=== PATIENT | male | born 1940 | race Caucasian/White ===

== ENCOUNTER → 2019-01-24 | Outpatient (CLI) | payer MEDICARE, MEDICAID ==
[~2019-01-24] MED LIST: ACET325T38 PO; ACET325T49 PO; ASCO-262 PO; ASPI-983 PO; BACL10TA PO; CEFD300C3 PO; CEPH-507 PO; DILT120C94 PO; DILT120T3 PO; DIVA-76 PO; DONE5TAB30 PO; DONE5TAB8 PO; FLUO10TA PO; HALO2TAB PO; HONE15GE TP; KETO-22 PO; LISI10TA2 PO; LORA0.5T PO; MAGN400O7 PO; MEMA5TAB PO; MEMA7CAP PO; MOME15CR17 TP; NITR0.4T SL; PRD10T PO; RISP0.2517 PO; RISP0.253 PO; RISP0.5T21 PO; ROPI0.253 PO; TRAM50TA2 PO; TRAZ-222 PO; TRIH2TAB2 PO
--- NOTE | 2019-01-24 14:09 | Diagnostic Imaging Report ---
Indication: Left great toe warm and redness. Grayscale, color-flow and duplex Doppler evaluation of the left lower extremity arterial system was performed. Triphasic waveforms left common femoral artery are noted. Predominantly biphasic waveforms in the left superficial femoral and popliteal artery is seen. Peroneal artery was not visualized. There are monophasic waveforms in the anterior and posterior tibial arteries as well as the dorsalis pedis. The velocities are unremarkable. There is some generalized plaque throughout the left lower extremity arterial system. Impression: Monophasic waveforms below the knee consistent with small vessel disease. No high-grade stenosis or occlusion is detected apart from nonvisualized peroneal artery. Dictated by: Dictated on workstation # [id number]
== END ==
LOC: RAD 12:17
PROVIDERS: ATTEND Family Medicine
DX: E11.9 Type 2 diabetes mellitus without complications (principal); R23.8 Other skin changes
CPT/HCPCS: 93926

== ENCOUNTER 2020-03-31 16:05 | Emergency (ER) | payer MEDICARE, MEDICAID ==
[~2020-03-31] VITALS: Ht 182 cm; Wt 90.7 kg
[~2020-03-31 16:05] MED LIST changes: +ASPI-1238 PO; -ASPI-983 PO; +DILT120C88 PO; -DILT120C94 PO; -MOME15CR17 TP; +MOME15CR8 TP; -TRAM50TA2 PO; -TRAZ-222 PO; +TRM50T PO; +TRZ50T PO
[2020-03-31] MEDS ORDERED: LACTATED RINGERS 1,000 ML IV ONE (16:08)
[2020-03-31] MEDS ORDERED: NS IV 1000 ML 1,000 ML ONE (16:23)
[2020-03-31 16:24] LABS: BASOPHILS % (AUTO) 0 % (0-10); EOSINOPHILS % (AUTO) 0 % (0-10); HEMATOCRIT 44 % (40-54); HEMOGLOBIN 14.2 g/dL (13.3-17.7); LYMPHOCYTES # (AUTO) 1.4 10^3/uL (1.0-4.0); LYMPHOCYTES % (AUTO) 9 % (12-44); MEAN CORPUSCULAR HEMOGLOBIN 30 pg (25-34); MEAN CORPUSCULAR HGB CONC 32 g/dL (32-36); MEAN CORPUSCULAR VOLUME 94 fL (80-99); MEAN PLATELET VOLUME 11.1 fL (9.0-12.2); MONOCYTES # (AUTO) 1.9 10^3/uL (0.0-1.0); MONOCYTES % (AUTO) 12 % (0-12); NEUTROPHILS # (AUTO) 12.1 10^3/uL (1.8-7.8); NEUTROPHILS % (AUTO) 78 % (42-75); PLATELET COUNT 270 10^3/uL (130-400); WHITE BLOOD COUNT 15.5 10^3/uL (4.3-11.0)
[2020-03-31] MEDS ORDERED: ONDANSETRON 4 MG/2 ML (SDV) Z0FRAN IVP ONE (16:30)
[2020-03-31 16:32] LABS: BILIRUBIN,URINE NEGATIVE (NEGATIVE); CLARITY,URINE SL CLOUDY; COLOR,URINE YELLOW; GLUCOSE, URINE (UA) NEGATIVE (NEGATIVE); KETONES,URINE 1+ (NEGATIVE); LEUKOCYTE ESTERASE ,URINE NEGATIVE (NEGATIVE); NITRITE,URINE NEGATIVE (NEGATIVE); PH,URINE 5.5 (5-9); PROTEIN,URINE 3+ (NEGATIVE)
[2020-03-31 16:33] LABS: ALBUMIN 4.1 GM/DL (3.2-4.5); POTASSIUM 3.4 MMOL/L (3.6-5.0)
[2020-03-31 16:34] LABS: CALCIUM 9.5 MG/DL (8.5-10.1)
[2020-03-31 16:35] LABS: TOTAL PROTEIN 8.3 GM/DL (6.4-8.2)
[2020-03-31 16:37] LABS: BILIRUBIN,TOTAL 0.5 MG/DL (0.1-1.0); FIBRIN DEGRADATION PRODUCTS 5.24 UG/ML (0.00-0.49); INR 1.1 (0.8-1.4)
[2020-03-31 16:39] LABS: CREATININE SERUM 1.7 MG/DL (0.60-1.30); MAGNESIUM 2.6 MG/DL (1.6-2.4); NEUTROPHILS % (MANUAL) 73 %
[2020-03-31 16:40] LABS: BAND NEUTROPHILS 7 %; BASOPHILS % (MANUAL) 0 %; EOSINOPHILS % (MANUAL) 0 %; LYMPHOCYTES % (MANUAL) 10 %; MONOCYTES % (MANUAL) 10 %; RBC MORPH NORMAL
[2020-03-31 16:44] LABS: AMORPHOUS SEDIMENT,UR FEW AMOR URATES /LPF; BACTERIA,URINE NEGATIVE /HPF; WBC,URINE 0-2 /HPF
--- NOTE | 2020-03-31 17:11 | Diagnostic Imaging Report ---
EXAMINATION: Portable chest. COMPARISON: Prior study from April 18, 2018. INDICATION: Sepsis. FINDINGS: Prominent right-sided cardiac border is unchanged from the previous examination. There appears to be enlargement of the cardiac silhouette and pulmonary vascularity appears appropriate. There is no finding of dense alveolar consolidation or evidence to suggest a large effusion. There is no pneumothorax. Overall lung volumes are slightly diminished compared to the prior examination. IMPRESSION: Diminished lung volumes without plain film findings of focal infiltrate or consolidation. There is no significant effusion. Heart size and mediastinal contours are unchanged from prior study. Dictated by: Dictated on workstation # [id number]
--- NOTE | 2020-03-31 18:01 | Diagnostic Imaging Report ---
PROCEDURE: CT head and CT cervical spine without contrast. TECHNIQUE: Multiple contiguous axial images were obtained through the brain and cervical spine without the use of intravenous contrast. Sagittal and coronal reformations through the cervical spine were then performed. Auto Exposure Controls were utilized during the CT exam to meet ALARA standards for radiation dose reduction. INDICATION: Trauma. Altered mental status. COMPARISON: CT head without contrast 06/17/2017. FINDINGS: CT head: No intracranial hemorrhage, mass effect, hydrocephalus or extra-axial fluid collection. Intracranial vascular calcifications. No CT evidence of an acute territorial infarction. 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 There is also chronic infarct in the left cerebellum. Advanced generalized cerebral and cerebellar parenchymal volume loss. Osseous structures are intact. Mild mucosal thickening in the right maxillary sinus. The mastoids are clear. CT cervical spine: Grade 1 anterolisthesis of C4 on C5. Vertebral body heights are preserved. No fracture. Advanced diffuse degenerative endplate changes and facet arthropathy. No high-grade spinal canal stenosis is evident on soft tissue windows. Advanced atherosclerotic calcifications. Lung apices are clear. IMPRESSION: No acute intracranial or cervical spine CT finding. Chronic and incidental findings as above. Dictated by: Dictated on workstation # [id number]
--- NOTE | 2020-03-31 18:05 | Diagnostic Imaging Report ---
PROCEDURE: CT abdomen and pelvis without contrast. TECHNIQUE: Multiple contiguous axial images were obtained through the abdomen and pelvis without the use of intravenous contrast. Auto Exposure Controls were utilized during the CT exam to meet ALARA standards for radiation dose reduction. INDICATION: Altered mental status. Vomiting. Sepsis. COMPARISON: None. FINDINGS: Examination is limited by motion. Mild atelectasis in the right lung base. The gallbladder is not identified and may be surgically absent. Cardiomegaly. Ospina catheter within a decompressed urinary bladder. The liver, pancreas, spleen, adrenals, kidneys and collecting systems are negative on this noncontrast exam. The appendix is not seen and may be surgically absent. Several fluid-filled loops of small bowel and proximal colon are prominent in caliber without tom dilatation or a focal transition point. No lymphadenopathy. No free intraperitoneal air or fluid. No acute osseous finding. Grade 1 anterolisthesis of L3 on L4 with chronic bilateral L3 pars defects. Advanced spondylotic changes at L3-L5. IMPRESSION: 1. Several loops of distended fluid-filled small bowel and proximal colon without a focal transition point to suggest obstruction. Findings could be due to an enteritis versus ileus. 2. Additional chronic findings as above. Dictated by: Dictated on workstation # [id number]
--- NOTE | 2020-03-31 18:16 | ED General ---
General Chief Complaint: Altered Mental Status Stated Complaint: VOMITING/DIARRHEA/HYPOTENSION Nursing Triage Note: Pt brought to ER via [facility] from [facility]. Per EMS patient was found on the floor covered in vomit and diarrhea. Pt brougt in with hypotension. He responds to his name called but does not follow commands or answer questions. Pt's right pupil is larger than left and he appears to have a left facial droop. Nursing Sepsis Screen: No Definite Risk Source of Information: EMS, Family, Long-Term Records Exam Limitations: No Limitations History of Present Illness Date Seen by Provider: Mar 31, 2020 Time Seen by Provider: 16:06 Initial Comments This 79 year old gentleman is a resident of [facility] and presents via EMS with weakness, vomiting, diarrhea, altered mental status, and hypotension. He was found on the floor at his facility with emesis and bowel movement around him. He is afebrile and feels cool to the touch. He has Parkinson's and dementia and general functional decline. He no longer walks independently. He does take care of some of his own ADLs including feeding himself. There was no obvious injury. Allergies and Home Medications Allergies Coded Allergies: No Known Drug Allergies (Unverified , 11/05/11) Home Medications Acetaminophen 325 Mg Tablet, 325 MG PO HS, (Reported) Acetaminophen 325 Mg Tablet, 650 MG PO Q4H PRN for MILD PAIN/ELEVATED TEMP, (Reported) TAKES 2 (325MG) TABLETS Ascorbate Calcium 500 Mg Tablet, 500 MG PO DAILY, (Reported) Aspirin 81 Mg Tablet.dr, 81 MG PO DAILY, (Reported) Baclofen 10 Mg Tablet, 10 MG PO BID, (Reported) Diltiazem HCl 120 Mg Cap.er.24h, 120 MG PO DAILY, (Reported) Divalproex Sodium 500 Mg Tablet.dr, 500 MG PO TID, (Reported) 0900, 1300, 1700 Donepezil HCl 5 Mg Tablet, 5 MG PO DAILY, (Reported) Fluoxetine HCl 10 Mg Tablet, 10 MG PO DAILY, (Reported) Lisinopril 10 Mg Tablet, 10 MG PO DAILY, (Reported) Magnesium Hydroxide 400 Mg/5 Ml Oral.susp, 30 ML PO DAILY PRN for CONSTIPATION- 7TH LINE, (Reported) Memantine HCl 5 Mg Tablet, 5 MG PO DAILY, (Reported) Nitroglycerin 0.4 Mg Tab.subl, 0.4 MG SL UD PRN for CHEST PAIN, (Reported) Ropinirole HCl 0.25 Mg Tablet, 0.25 MG PO HS, (Reported) Tramadol HCl 50 Mg Tablet, 50 MG PO BID, (Reported) Trihexyphenidyl HCl 2 Mg Tablet, 1 MG PO TID, (Reported) 0900, 1300, 1700 TAKES 1/2 (2MG) TABLET Patient Home Medication List Home Medication List Reviewed: Yes Review of Systems Review of Systems Constitutional: see HPI, weakness EENTM: no symptoms reported Respiratory: short of breath Cardiovascular: see HPI Gastrointestinal: see HPI Genitourinary: no symptoms reported Musculoskeletal: no symptoms reported Skin: no symptoms reported Psychiatric/Neurological: See HPI Hematologic/Lymphatic: No Symptoms Reported Past Tkovpan-Icnkqv-Qavijx Hx Past Med/Social Hx: Reviewed Nursing Past Med/Soc Hx Patient Social History Alcohol Use: Denies Use Recreational Drug Use: Yes (ETOH) Smoking Status: Unknown if Ever Smoked Recent Foreign Travel: No Contact w/Someone Who Travel: No Recent Infectious Disease Expo: No Immunizations Up To Date Tetanus Booster (TDap): Unknown Date of Pneumonia Vaccine: Feb 14, 2015 Date of Influenza Vaccine: Apr 06, 2017 Seasonal Allergies Seasonal Allergies: Yes Past Medical History Surgeries: Yes (UNKNOWN) Orthopedic Respiratory: No Cardiac: Yes (HYPERTENSIVE HEART DISEASE) Atrial Fibrillation, Hypertension Neurological: Yes Dementia, Parkinson's Disease Genitourinary: Yes Kidney Infection, Neurogenic Bladder Gastrointestinal: No Musculoskeletal: Yes Arthritis Endocrine: Yes Diabetes, Non-Insulin dep HEENT: Yes (DYSARTHRIA) Dysphagia Cancer: No Psychosocial: Yes Sleep Difficulties, Anxiety, Bipolar, Depression Integumentary: Yes Blood Disorders: Yes Family Medical History No Pertinent Family Hx Physical Exam Vital Signs Vital Signs - First Documented 03/31/20 16:05 Temp 36.2 Pulse 92 Resp 20 B/P (MAP) 58/46 (50) Pulse Ox 97 O2 Delivery OxyMask O2 Flow Rate 4.00 Capillary Refill : Greater Than 3 Seconds Height, Weight, BMI Height: 5'10.00" Weight: 202lbs. 8.0oz. 91.706675xg; 27.00 BMI Method:Stated General Appearance: WD/WN, Mild Distress HEENT: Other (Anisocoria with right pupil greater than left. Mucous membranes somewhat dry) Neck: Normal Inspection Respiratory: No Crackles; Decreased Breath Sounds, Other (Tachypnea) Cardiovascular: Regular Rate, Rhythm, No Edema, No Murmur Gastrointestinal: Normal Bowel Sounds, Other (Abdomen somewhat firm but not distended. Does not appear tender.) Extremity: Normal Inspection, No Pedal Edema, Other (Extremities are pale and cool. No palpable pedal pulses. Radial pulses are faintly palpable.) Neurologic/Psychiatric: Alert, Other (Motor weakness diffusely. Does not move lower extremities. Does not talk in a meaningful manner but mumbles and speaks gibberish) Skin: Normal Color, Warm/Dry Focused Exam Lactate Level 03/31/20 16:00: Lactic Acid Level 12.22*H 03/31/20 18:15: Lactic Acid Level 8.96*H Lactic Acid Level Laboratory Tests Test 03/31/20 16:00 03/31/20 18:15 Lactic Acid Level 12.22 MMOL/L (0.50-2.00) *H 8.96 MMOL/L (0.50-2.00) *H Progress/Results/Core Measures Suspected Sepsis Recent Fever Within 48 Hours: No Infection Criteria Present: None New/Unexplained Altered Menta: Yes Sepsis Screen: No Definite Risk SIRS Temperature: Pulse: 92 Respiratory Rate: 20 Laboratory Tests 03/31/20 16:00: White Blood Count 15.5H Blood Pressure 58 /46 Mean: 50 03/31/20 16:00: Lactic Acid Level 12.22*H 03/31/20 18:15: Lactic Acid Level 8.96*H Laboratory Tests 03/31/20 16:00: Creatinine 1.70H, INR Comment 1.1, Platelet Count 270, Total Bilirubin 0.5 Results/Orders Lab Results Laboratory Tests Test 03/31/20 16:00 03/31/20 16:16 03/31/20 16:20 03/31/20 18:15 Range/Units White Blood Count 15.5 H 4.3-11.0 10^3/uL Red Blood Count 4.72 4.30-5.52 10^6/uL Hemoglobin 14.2 13.3-17.7 g/dL Hematocrit 44 40-54 % Mean Corpuscular Volume 94 80-99 fL Mean Corpuscular Hemoglobin 30 25-34 pg Mean Corpuscular Hemoglobin Concent 32 32-36 g/dL Red Cell Distribution Width 13.4 10.0-14.5 % Platelet Count 270 130-400 10^3/uL Mean Platelet Volume 11.1 9.0-12.2 fL Immature Granulocyte % (Auto) 0 % Neutrophils (%) (Auto) 78 H 42-75 % Lymphocytes (%) (Auto) 9 L 12-44 % Monocytes (%) (Auto) 12 0-12 % Eosinophils (%) (Auto) 0 0-10 % Basophils (%) (Auto) 0 0-10 % Neutrophils # (Auto) 12.1 H 1.8-7.8 10^3/uL Lymphocytes # (Auto) 1.4 1.0-4.0 10^3/uL Monocytes # (Auto) 1.9 H 0.0-1.0 10^3/uL Eosinophils # (Auto) 0.0 0.0-0.3 10^3/uL Basophils # (Auto) 0.0 0.0-0.1 10^3/uL Immature Granulocyte # (Auto) 0.0 0.0-0.1 10^3/uL Neutrophils % (Manual) 73 % Lymphocytes % (Manual) 10 % Monocytes % (Manual) 10 % Eosinophils % (Manual) 0 % Basophils % (Manual) 0 % Band Neutrophils 7 % Blood Morphology Comment NORMAL Prothrombin Time 15.0 H 12.2-14.7 SEC INR Comment 1.1 0.8-1.4 Activated Partial Thromboplast Time 28 24-35 SEC D-Dimer 5.24 H 0.00-0.49 UG/ML Sodium Level 141 135-145 MMOL/L Potassium Level 3.4 L 3.6-5.0 MMOL/L Chloride Level 108 H 98-107 MMOL/L Carbon Dioxide Level 7 *L 21-32 MMOL/L Anion Gap 26 H 5-14 MMOL/L Blood Urea Nitrogen 38 H 7-18 MG/DL Creatinine 1.70 H 0.60-1.30 MG/DL Estimat Glomerular Filtration Rate 39 BUN/Creatinine Ratio 22 Glucose Level 433 *H 70-105 MG/DL Lactic Acid Level 12.22 *H 8.96 *H 0.50-2.00 MMOL/L Calcium Level 9.5 8.5-10.1 MG/DL Corrected Calcium 9.4 8.5-10.1 MG/DL Magnesium Level 2.6 H 1.6-2.4 MG/DL Total Bilirubin 0.5 0.1-1.0 MG/DL Aspartate Amino Transf (AST/SGOT) 45 H 5-34 U/L Alanine Aminotransferase (ALT/SGPT) 12 0-55 U/L Alkaline Phosphatase 61 40-136 U/L Lactate Dehydrogenase 340 H 125-220 U/L Myoglobin 1106.4 H 10.0-92.0 NG/ML Troponin I 5.317 *H <0.028 NG/ML C-Reactive Protein High Sensitivity 5.74 H 0.00-0.50 MG/DL Total Protein 8.3 H 6.4-8.2 GM/DL Albumin 4.1 3.2-4.5 GM/DL Procalcitonin 0.69 H <0.10 NG/ML Coronavirus 2019 (BLAIRE) Negative Negative Glucometer 299 H 70-110 MG/DL Urine Color YELLOW Urine Clarity SL CLOUDY Urine pH 5.5 5-9 Urine Specific [place] >=1.030 1.016-1.022 Urine Protein 3+ H NEGATIVE Urine Glucose (UA) NEGATIVE NEGATIVE Urine Ketones 1+ H NEGATIVE Urine Nitrite NEGATIVE NEGATIVE Urine Bilirubin NEGATIVE NEGATIVE Urine Urobilinogen 0.2 < = 1.0 MG/DL Urine Leukocyte Esterase NEGATIVE NEGATIVE Urine RBC (Auto) TRACE-L NEGATIVE Urine RBC 2-5 H /HPF Urine WBC 0-2 /HPF Urine Squamous Epithelial Cells NONE /HPF Urine Crystals NONE /LPF Urine Amorphous Sediment FEW YANCI URATES H /LPF Urine Bacteria NEGATIVE /HPF Urine Casts PRESENT /LPF Urine Hyaline Casts 2-5 H /LPF Urine Mucus NEGATIVE /LPF Urine Culture Indicated CULTURE PENDING Micro Results Microbiology 03/31/20 Influenza Types A,B Antigen (RISHABH) - Final, Complete My Orders Orders - ESTELA RANKIN MD Cbc With Automated Diff (03/31/20 16:15) Comprehensive Metabolic Panel (03/31/20 16:15) Blood Culture (03/31/20 16:15) Sputum Culture (03/31/20 16:15) Urinalysis (03/31/20 16:15) Urine Culture (03/31/20 16:15) Protime With Inr (03/31/20 16:15) Partial Thromboplastin Time (03/31/20 16:15) Chest 1 View, Ap/Pa Only (03/31/20 16:15) Ed Iv/Invasive Line Start (03/31/20 16:15) Ed Iv/Invasive Line Start (03/31/20 16:15) Vital Signs Adult Sepsis Patie Q15M (03/31/20 16:15) O2 (03/31/20 16:15) Remove Rings In Anticipation O (03/31/20 16:15) Lactic Acid Analyzer (03/31/20 16:15) Fibrin Degradation Products (03/31/20 16:15) Procalcitonin (Pct) (03/31/20 16:15) Hs C Reactive Protein (03/31/20 16:15) LDH (03/31/20 16:15) Influenza A And B Antigens (03/31/20 16:15) Magnesium (03/31/20 16:15) Ekg Tracing (03/31/20 16:15) Myoglobin Serum (03/31/20 16:15) Monitor-Rhythm Ecg Trace Only (03/31/20 16:15) Troponin I (03/31/20 16:15) Ondansetron Injection (Zofran Injectio (03/31/20 16:30) Ns Iv 1000 Ml (Sodium Chloride 0.9%) (03/31/20 16:23) Manual Differential (03/31/20 16:00) Covid 19 Inhouse Test (03/31/20 16:54) Ct Abdomen/Pelvis Wo (03/31/20 17:10) Ct Head/Cervical Spine Wo (03/31/20 17:20) Rx-Promethazine Hcl (Rx-Phenergan Supp) (03/31/20 18:34) Rx-Ondansetron Po (Rx-Zofran Po) (03/31/20 18:34) Rx-Oxycodone/Apap 5-325 Mg (Rx-Percocet (03/31/20 18:45) Rx-Lorazepam (Rx-Ativan) (03/31/20 18:34) Medications Given in ED Current Medications Medications Dose Ordered Sig/Rosa M Route Start Time Stop Time Status Last Admin Dose Admin Ondansetron HCl 8 mg ONCE ONCE IVP 03/31/20 16:30 03/31/20 16:31 DC 03/31/20 16:31 8 MG Sodium Chloride 1,000 ml @ STK-MED ONCE .ROUTE 03/31/20 16:23 03/31/20 16:25 DC 03/31/20 16:00 1,000 MLS/HR Vital Signs/I&O 03/31/20 03/31/20 16:05 16:05 Temp 36.2 Pulse 92 Resp 20 B/P (MAP) 58/46 (50) Pulse Ox 97 98 O2 Delivery OxyMask OxyMask O2 Flow Rate 4.00 4.00 Capillary Refill : Greater Than 3 Seconds Blood Pressure Mean: 50 Progress Note : Progress Note This patient has severe disease with severe lactic acidosis, markedly elevated troponin, markedly elevated D-dimer, hypotension, altered mental status, etc. Given his poor function at baseline, dementia, and Parkinson's, his prognosis at this point is quite poor. I have discussed the case with his next of kin including his mrmsrs-wd-wuw Quita Rodgers and his nephew Yamil Gibbons. I have also reviewed the case with Dr. PATEL. All parties involved agree that comfort care and hospice are the most appropriate measures to take at this time. Aggressive care would likely cause more suffering and not result in improved quality of life. I have contacted [facility] and the director of the [facility]pc. Arrangements have been made to return him to the [facility] on hospice care. Patient received 2 L of IV fluid and Zofran. ECG Initial ECG Impression Date: Mar 31, 2020 Initial ECG Impression Time: 18:13 Initial ECG Rate: 100 Initial ECG Rhythm: A Fib/Flutter Initial ECG Impression: Atrial Fibrillation Comment Atrial fibrillation with ST depression noted in V1. Left axis deviation. Prolonged QTc of 514 ms. Diagnostic Imaging Diagonstic Imaging: CT Plain Films/CT/US/NM/MRI: c-spine, head Comments CT head and cervical spine viewed by me and report reviewed. See report below: NAME: [facility] REC#: [id number] PT STATUS: REG ER : 1940 PHYSICIAN: ESTELA RANKIN MD ADMIT DATE: 03/31/20/ER Draft Date of Exam:03/31/20 CT HEAD/CERVICAL SPINE WO PROCEDURE: CT head and CT cervical spine without contrast. TECHNIQUE: Multiple contiguous axial images were obtained through the brain and cervical spine without the use of intravenous contrast. Sagittal and coronal reformations through the cervical spine were then performed. Auto Exposure Controls were utilized during the CT exam to meet ALARA standards for radiation dose reduction. INDICATION: Trauma. Altered mental status. COMPARISON: CT head without contrast 06/17/2017. FINDINGS: CT head: No intracranial hemorrhage, mass effect, hydrocephalus or extra-axial fluid collection. Intracranial vascular calcifications. No CT evidence of an acute territorial infarction. 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 There is also chronic infarct in the left cerebellum. Advanced generalized cerebral and cerebellar parenchymal volume loss. Osseous structures are intact. Mild mucosal thickening in the right maxillary sinus. The mastoids are clear. CT cervical spine: Grade 1 anterolisthesis of C4 on C5. Vertebral body heights are preserved. No fracture. Advanced diffuse degenerative endplate changes and facet arthropathy. No high-grade spinal canal stenosis is evident on soft tissue windows. Advanced atherosclerotic calcifications. Lung apices are clear. IMPRESSION: No acute intracranial or cervical spine CT finding. Chronic and incidental findings as above. Dictated on workstation # [id number] Dict: 03/31/20 1755 Trans: 03/31/20 1801 [facility] [phone] Interpreted by: KEELY SHEPARD MD Diagonstic Imaging: CT Plain Films/CT/US/NM/MRI: abdomen, pelvis Comments CT abdomen and pelvis viewed by me and report reviewed. See report below: NAME: THEA [facility] REC#: [id number] PT STATUS: REG ER : 1940 PHYSICIAN: ESTELA RANKIN MD ADMIT DATE: 03/31/20/ER Draft Date of Exam:03/31/20 CT ABDOMEN/PELVIS WO PROCEDURE: CT abdomen and pelvis without contrast. TECHNIQUE: Multiple contiguous axial images were obtained through the abdomen and pelvis without the use of intravenous contrast. Auto Exposure Controls were utilized during the CT exam to meet ALARA standards for radiation dose reduction. INDICATION: Altered mental status. Vomiting. Sepsis. COMPARISON: None. FINDINGS: Examination is limited by motion. Mild atelectasis in the right lung base. The gallbladder is not identified and may be surgically absent. Cardiomegaly. Ospina catheter within a decompressed urinary bladder. The liver, pancreas, spleen, adrenals, kidneys and collecting systems are negative on this noncontrast exam. The appendix is not seen and may be surgically absent. Several fluid-filled loops of small bowel and proximal colon are prominent in caliber without tom dilatation or a focal transition point. No lymphadenopathy. No free intraperitoneal air or fluid. No acute osseous finding. Grade 1 anterolisthesis of L3 on L4 with chronic bilateral L3 pars defects. Advanced spondylotic changes at L3-L5. IMPRESSION: 1. Several loops of distended fluid-filled small bowel and proximal colon without a focal transition point to suggest obstruction. Findings could be due to an enteritis versus ileus. 2. Additional chronic findings as above. Dictated on workstation # [id number] Dict: 03/31/208 Trans: 03/31/201804 [facility] [phone] Interpreted by: KEELY SHEPARD MD Diagonstic Imaging: Xray Plain Films/CT/US/NM/MRI: chest Comments Chest x-ray viewed by me and report reviewed. See report below: NAME: THEA [facility] REC#: [id number] PT STATUS: REG ER : 1940 PHYSICIAN: ESTELA RANKIN MD ADMIT DATE: 03/31/20/ER Signed Date of Exam:03/31/20 CHEST 1 VIEW, AP/PA ONLY EXAMINATION: Portable chest. COMPARISON: Prior study from April 18, 2018. INDICATION: Sepsis. FINDINGS: Prominent right-sided cardiac border is unchanged from the previous examination. There appears to be enlargement of the cardiac silhouette and pulmonary vascularity appears appropriate. There is no finding of dense alveolar consolidation or evidence to suggest a large effusion. There is no pneumothorax. Overall lung volumes are slightly diminished compared to the prior examination. IMPRESSION: Diminished lung volumes without plain film findings of focal infiltrate or consolidation. There is no significant effusion. Heart size and mediastinal contours are unchanged from prior study. Dictated by: Dictated on workstation # [id number] Dict: 03/31/201705 Trans: 03/31/201711 [facility] [id number] Interpreted by: JODI LING MD Electronically signed by: JODI LING MD 03/31/201711 Departure Impression Primary Impression: Lactic acidosis Additional Impressions: Acute kidney injury Elevated troponin Elevated d-dimer Altered mental status Qualified Codes: R41.82 - Altered mental status, unspecified Disposition: 01 HOME, SELF-CARE Condition: Unchanged Departure-Patient Inst. Referrals: VETO WADE DO (PCP/Family) Primary Care Physician Patient Instructions: NO INSTRUCTIONS GIVEN Add. Discharge Instructions: Return to the [facility]. Use comfort medications as prescribed. Follow hospice orders. All discharge instructions reviewed with patient and/or family. Voiced un derstanding. ESTELA RANKIN MD Mar 31, 2020 18:16
[2020-03-31] MEDS ORDERED: RX-ONDANSETRON 4 MG ODT (ZOFRAN) PPK #4 SL STA (18:34)
[2020-03-31] MEDS ORDERED: RX-LORAZEPAM (ATIVAN) 0.5 MG TAB PPK#4 PO STA (18:34)
[2020-03-31] MEDS ORDERED: RX-PHENERGAN 25 MG SUPP PPK#3 PR STA (18:34)
[2020-03-31] MEDS ORDERED: RX-OXYCODONE/APAP 5-325 MG #4 TAB PK PO PRN (18:45)
--- NOTE | 2020-03-31 19:19 | NUR ---
Report called to [facility] Amy OSORIO. She was advised patient is coming back on Hospice. She was advised we would be sending PO medications since Hospice was unable to get prescriptions filled tonight.
--- NOTE | 2020-03-31 19:20 | NUR ---
Benedicto with [facility] notified that patient is ready now for transport back to [facility].
--- NOTE | 2020-03-31 19:20 | NUR ---
Dispatch notified that patient needs transported back to [facility].
--- NOTE | 2020-03-31 19:50 | NUR ---
Ospina catheter removed and IV dc'd. Patient is awake but very confused at time of transport. PO medications given to EMS to transfer with the patient.
[2020-03-31 19:51] VITALS: BP 83/71
== END 2020-03-31 19:51 | disposition home or self-care (01) ==
LOC: EDUNIT# 16:05 → ER 16:06
DX: E87.2 Acidosis (principal); N17.9 Acute kidney failure, unspecified; R77.8 Other specified abnormalities of plasma proteins; R79.1 Abnormal coagulation profile; R41.82 Altered mental status, unspecified; I10 Essential (primary) hypertension; E11.9 Type 2 diabetes mellitus without complications; F31.9 Bipolar disorder, unspecified; F41.9 Anxiety disorder, unspecified; G31.83 Neurocognitive disorder with Lewy bodies; F02.80 Dementia in other diseases classified elsewhere, unspecified severity, without behavioral disturbance, psychotic disturbance, mood disturbance, and anxiety; Z20.828 Contact with and (suspected) exposure to other viral communicable diseases; Z79.82 Long term (current) use of aspirin
CPT/HCPCS: 51702; 70450; 71045; 72125; 74176; 80053; 81000; 82962; 83605; 83615; 83735; 83874; 84145; 84484; 85007; 85027; 85379; 85610; 85730; 86141; 87040; 87088; 87804; 93005; 93041; 99284; U0002; 36415; 87635